=== PATIENT | male | born 1985 | race Caucasian/White ===

== ENCOUNTER 2023-11-30 04:55 | Emergency (ER) | payer BC, SELFPAY ==
[2023-11-30 04:58] VITALS: BP 103/67; PULSE 139; RESP 22; TEMP 37.6; O2SAT 96; BMI 27.7
--- NOTE | 2023-11-30 05:19 | ED.GENADULT ---
HPI - General Adult General Chief complaint: Fever Stated complaint: Fever Time Seen by Provider: 11/30/23 05:19 History of Present Illness HPI narrative: fever since Friday. 103.5 was max. Ibuprofen and Tylenol rotated . Inhaler used this morning around 0200. pt complaining of headache. 38-year-old man presenting to the emergency department with concern of fever now into day. Has been pushing fluids. Is not complaining of nausea. Concern is potential pneumonia. Has had a fever now about 36 hours. Headache and body aches. He does have some discomfort in his mid chest gesturing to that area. No specific abdominal pain. No rashes noted. Related Data Home Medications Medication Instructions Recorded Confirmed albuterol sulfate 90 mcg/actuation 1 inh inhalation Q4-6H PRN 11/30/23 11/30/23 aerosol inhaler (ProAir HFA) Allergies Allergy/AdvReac Type Severity Reaction Status Date / Time No Known Drug Allergies Allergy Verified 11/30/23 05:03 Review of Systems Status of ROS: Reports: 6 or more systems reviewed and unremarkable except as noted in History and below PFSH PFS Social History Non-prescribed substance use: denies use Exam Narrative: Exam Narrative: Calm. NAD. Looks uncomfortable; does looks like does not feel very good. Flushed. Oropharynx is moist. Neck is supple without lymphadenopathy. Breathing easily and easily conversant. Lungs sound clear with good air movement throughout. Heart is tachycardic. Regular rhythm. Skin is warm without apparent rash. Well-perfused. Const: Vital Signs, click to edit/add: Vital Signs - 24 hr 11/30/23 04:58 11/30/23 04:58 Temperature 99.6 F Pulse Rate [Left P ulse Oximeter] 139 H Respiratory Rate 22 Blood Pressure [Ri ght Upper Arm] 103/67 Pulse Oximetry 96 Oxygen Delivery Me thod Room Air Room Air Documenting provider has reviewed patient's vital signs: yes Course Vital Signs Vital signs: Initial Vital Signs Temperature 99.6 F 11/30/23 04:58 Temperature Source Oral 11/30/23 04:58 Pulse Rate 139 H 11/30/23 04:58 Pulse Rhythm Regular 11/30/23 04:58 Respiratory Rate 22 11/30/23 04:58 Respiratory Effort Normal 11/30/23 04:58 Respiratory Depth Normal 11/30/23 04:58 Respiratory Pattern Normal 11/30/23 04:58 Blood Pressure 103/67 11/30/23 04:58 Blood Pressure Mean 79 11/30/23 04:58 Blood Pressure Position Sitting 11/30/23 04:58 Pulse Oximetry 96 11/30/23 04:58 Oxygen Delivery Method Room Air 11/30/23 04:58 Sepsis Recent Fever Within 48 Hours Yes 11/30/23 04:58 Sepsis Action Taken by Nursing No Action Required 11/30/23 04:58 Vital Signs Temperature 99.6 F 11/30/23 04:58 Pulse Rate 139 H 11/30/23 04:58 Respiratory Rate 22 11/30/23 04:58 Blood Pressure 103/67 11/30/23 04:58 Pulse Oximetry 96 11/30/23 04:58 Oxygen Delivery Method Room Air 11/30/23 04:58 Temperature 99.6 F 11/30/23 04:58 Pulse Rate 139 H 11/30/23 04:58 Respiratory Rate 22 11/30/23 04:58 Blood Pressure 103/67 11/30/23 04:58 Pulse Oximetry 96 11/30/23 04:58 Oxygen Delivery Method Room Air 11/30/23 04:58 Medical Decision Making MDM Narrative Medical decision making narrative: I think viral process is most likely explanation for constellation of symptoms. Lungs actually sound clear. Think less likely to be pneumonia already. Would suspect influenza given community prevalence. Does not feel like needs other intervention at this time. Triple swab is pending. If they feel they needed chest x-ray they think would be more affordable at the [facility] where spouse works and their preference is to follow up there. Indeed positive for influenza type A. Discussed treatment options. I think still relevant as within 1st 48 hours. Discussed potential side effects and potential benefits. Underlying history of asthma/wheeze. Spouse declined Tamiflu offer. See patient discharge plan Lab Data Lab results reviewed: Yes I reviewed the patient's lab results Labs: Lab Results 11/30/23 Range/Units 05:05 SARS-CoV-2 (PCR) Negative SARS-CoV-2 (Negative) Influenza Type A (PCR) POSITIVE PCR FLU A A (Negative) Influenza Type B (PCR) Negative PCR FLU B (Negative) RSV (PCR) Negative PCR RSV (Negative) Discharge Plan Discharge Clinical Impression: Influenza A, Fever Patient Disposition: Home w/ Parent or Adult Condition: Stable Additional Instructions: Continue to hydrate. Ibuprofen, acetaminophen. Return for persistent increased shortness of breath, repeated vomiting, inability to control fever. Oseltamivir is available and might be helpful in decreasing duration of illness or severity; more indicated in persons with comorbidities like yours with asthma/wheeze. Prescriptions: No Action albuterol sulfate [ProAir HFA] 90 mcg/actuation HFA aerosol inhaler 1 inh inhalation Q4-6H PRN Follow Up/Referrals: Quirino Vitale MD [Primary Care Provider] - Stand Alone Forms: [employer] Info Instructions
--- NOTE | 2023-11-30 05:38 | ED.NURSE ---
verbal discharge by
--- OUTSIDE RECORDS SUMMARY | 2023-11-30 05:46 | XMS_ITS ---
Author Name Unknown Organization [facility] Address [address] [place] [address] Care Team Providers Care Book Retailer Name Role Phone Unavailable Unavailable Unavailable Surgery Details Not on file Complications Check Surgery Details section. Procedure Estimated Blood Loss Check Surgery Details section. Procedure Findings Check Surgery Details section. Procedure Specimens Taken Check Surgery Details section.
--- OUTSIDE RECORDS SUMMARY | 2023-11-30 05:46 | XMS_ITS | Referral Summary ---
Author Name Unknown Organization [facility] Address [address] [place] [address] Care Team Providers Care Nurse Sexual Assault Name Role Phone Elsewhere, Pcp Primary Care Provider Unavailabl e Source Comments Patient records contain information from all sites at [facility]. For routine questions regarding patient records, call [phone] during business hours, M-F 8:00 AM - 5:00 PM Central Time. Record requests for emergency care only can be directed to [phone] at any time.[facility] Allergies Active Allergy Reactions Criticality Noted Date Comments Ragweed Pollen Other (see comments) 03/08/2021 Medications Medication Sig Dispensed Refills Start Date End Date Status albuterol (ProAir HFA) 90 mcg/actuation inhaler Inhale. 0 06/24/2021 Act telma Immunizations Name Administration Dates Next Due Tdap 06/19/2011 Social History Tobacco Use Types Packs/Day Years Used Date Smoking Tobacco: Never Smokeless Tobacco: Never Alcohol Use Standard Drinks/Week Comments Never 0 (1 standard drink = 0.6 oz pur e alcohol) Nutrition Answer Date Recorded Nutrition: EVOO Fat Source Unknown 11/29 Nutrition: Servings of Fruits/Vegetables per Day Not on file 11/29/2021 Dental Answer Date Recorded Dental: Regular Dentist Unknown 11/29/19 Sex and Gender Information Value Date Recorded Sex Assigned at Not on file Gender Identity Not on file Sexual Orientation Not on file Last Filed Vital Signs Vital Sign Reading Time Taken Comments Blood Pressure 136/88 01/07/2022 1:14 PM [employer] Pulse 62 01/07/2022 12:54 PM [employer] Temperature 36.3 ??C (97.3 ??F) 01/07/2022 12:[address] Respiratory Rate 18 12/30/2016 11:09 AM [employer] Oxygen Saturation 98% 01/07/2022 12:54 PM [employer] Inhaled Oxygen Concentration - - Weight 81.7 kg (180 lb 1.9 oz) 01/07/2022 12:54 PM [employer] Height 172.5 cm (5' 7.91) 01/07/2022 12:[address] Body Mass Index 27.46 01/07/2022 12:54 PM [employer] Plan of Treatment Not on file Care Teams Nurse Sexual Assault Relationship Specialty Start Date End Date Elsewhere, Pcp PCP - General Internal Medicine 01/07/22
--- OUTSIDE RECORDS SUMMARY | 2023-11-30 05:46 | XMS_ITS | Clinical Summary ---
Author Name Unknown Organization [facility] Address [place], [place] [address] Care Team Providers Care High Lift Driver Name Role Phone Quirino Vitale MD Primary Care Provider [phone] Allergies Active Allergy Reactions Criticality Noted Date Comments Ragweed Pollen Runny Nose 03/08/2021 Medications No known medications Active Problems Problem Noted Date Diagnosed Date Mild intermittent asthma without complication Immunizations Name Administration Dates Next Due Meningococcal Vaccine (Menomune) 03/25/2006 Tdap 10/01/2021,06/21/2011,04/16/2008 Family History Medical History Relation Name Comments Heart Disease Maternal Grandfather Other Paternal Grandfather Brain a neurysm Relation Name Status Comments Maternal Grandfather Paternal Grandfather Social History Tobacco Use Types Packs/Day Years Used Date Smoking Tobacco: Former Cigarettes Q uit: 12/2009 Smokeless Tobacco: Never Tobacco Cessation:Counseling Given: Yes Alcohol Use Standard Drinks/Week Comments Yes 3 (1 standard drink = 0.6 oz pur e alcohol) A few drinks per week PHQ-2 Answer Date Recorded PHQ-2 TOTAL SCORE 0 07/28/2023 Social Connections Answer Date Recorded Frequency of Communication with Friends and Fami ly 0 12/02/2022 Financial Resource Strain Answer Date R ecorded Difficulty of Paying Living Expenses 3 12/02/2022 Difficulty of Paying Living Expenses Not on file 12/02/2022 Food Insecurity Answer Date Recorded Worried About Running Out of Food in the Last Ye ar 1 12/02/2022 Transportation Needs Answer Date Record ed Lack of Transportation (Medical) 1 12/02/2022 Housing Stability Answer Date Recorded Unable to Pay for Housing in the Last Year 1 12/02/2022 Sex and Gender Information Value Date Recorded Sex Assigned at Not on file Gender Identity Not on file Sexual Orientation Not on file Obstetrics History Last Filed Vital Signs Vital Sign Reading Time Taken Comments Blood Pressure 124/82 07/28/2023 7:20 AM CDT Pulse 69 07/28/2023 7:06 AM CDT Temperature 37.4 ??C (99.4 ??F) 03/08/2021 1 0:14 AM CDT ibuprofen on board as of 0600 Respiratory Rate 20 04/29/2018 8:57 AM CDT Oxygen Saturation 98% 07/28/2023 7:0 5 AM CDT Inhaled Oxygen Concentration - - Weight 83.5 kg (184 lb) 07/28/2023 7:05 AM CDT Height 172.5 cm (5' 7.91) 07/28/2023 7 :05 AM CDT Body Mass Index 28.05 07/28/2023 7:05 AM CDT Plan of Treatment Health Maintenance Due Date Last Done Comments COVID-19 vaccine series (#1) 01/25/1988 Pneumococcal series for age 6-64 (1 of 2 - PCV) 1993 HIV for age 15-65 2002 Hepatitis C screening for ag e 18-79 2005 Influenza for age 9-49 07/11/2023 BMI (ht and wt on same day) for age 18+ 07/28/2024 07/28/2023, 06/10/2022, 10/01/2021, Additional history exists Depression screening for age 12+ 07/28/2024 07/28/2023, 10/01/2021, 03/31/2017, Additional history exists Lipids for age 35-44 06/10/2027 06/10/2022, 10/01/20 21 Tetanus booster 10/01/2031 10/01/2021, 06/10, 04/16/2008 Tdap Completed 10/01/2021, 06/10, 04/16/2008 Care Teams High Lift Driver Relationship Specialty Start Date End Date Quirino Vitale MD [address] [place] [address] PCP - General Family Practice 02/29/16
--- OUTSIDE RECORDS SUMMARY | 2023-11-30 05:46 | XMS_ITS | Clinical Summary ---
Author Name Unknown Organization [facility] Address [address] [place] [address] Care Team Providers Care Material Dispatcher Name Role Phone Elsewhere, Pcp Primary Care Provider Unavailabl e Source Comments Patient records contain information from all sites at [facility]. For routine questions regarding patient records, call [phone] during business hours, M-F 8:00 AM - 5:00 PM Central Time. Record requests for emergency care only can be directed to [phone] at any time.[facility] Allergies Active Allergy Reactions Criticality Noted [...] Comments Blood Pressure 136/88 01/07/2022 1:14 PM [employer] SUPER[employer] Pulse 62 01/07/2022 12:54 PM [employer]GER [employer]PER[employer] Temperature 36.3 ??C (97.3 ??F) 01/07/2022 12:[address] Respiratory Rate 18 12/30/2016 11:09 AM RIGGER SUPERVISOR Oxygen Saturation 98% 01/07/2022 12:54 PM [employer] SUPER[employer] Inhaled Oxygen Concentration - - Weight 81.7 kg (180 lb 1.9 oz) 01/07/2022 12:54 PM [employer]IGGER SUPERVISOR Height 172.5 cm (5' 7.91) 01/07/2022 12:[address] Body Mass Index 27.46 01/07/2022 12:54 PM RIGGER SUPERVISOR Plan of Treatment Health Maintenance Due Date Last Done Comments HIV Screening 1987 Hepatitis B Vaccines (1 of 3 - 3-dose series) 1987 Hepatitis C Screening 1987 COVID-19 Vaccine (#1) 01/25/1988 Influenza Vaccine (#1) 2023 Depression Screening (Annual PHQ-2) 11/10/2023 Lipid (Cholesterol) Screening 10/01/2026 10/01/2021 DTaP,Tdap,and Td Vaccines (4 - Td or Tdap) 10/01/2031 10/01/2021, 06/19/2011, 04/16/2008 HPV Vaccines Aged Out No longer eligi ble based on patient's age to complete this topic Pneumococcal vaccine (0-64 years) Aged Out No longer eligible b ased on patient's age to complete this topic Care Teams Material Dispatcher Relationship Specialty Start Date End Date Elsewhere, Pcp PCP - General Internal Medicine 01/07/22
[2023-11-30 05:47] LABS: PCR FLU A POSITIVE PCR FLU A (Negative); PCR FLU B Negative PCR FLU B (Negative); PCR RSV Negative PCR RSV (Negative); SARS PCR* Negative SARS-CoV-2 (Negative)
== END 2023-11-30 06:03 | disposition home or self-care (01) ==
PROVIDERS: Emergency Provider Family Medicine; PCP Surgery
DX: J10.1 Influenza due to other identified influenza virus with other respiratory manifestations (principal); R50.9 Fever, unspecified
CPT/HCPCS: 87631; 99282; 99283; 99284